=== PATIENT | male | born 1985 | race Caucasian/White ===

== ENCOUNTER 2020-01-31 17:02 | Emergency (ER) | payer OTHER, SELFPAY ==
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
[2020-01-31 17:06] VITALS: BP 149/90; PULSE 94; RESP 18; TEMP 36.6; O2SAT 97
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
[2020-01-31 17:23] LABS: Abs Immature Grans 0.06 10^3/uL (0.0-0.06); Absolute Lymphocyte Count 2.82 10^3/uL (1.2-3.4); Absolute Monocyte Count 1.14 10^3/uL (0.1-0.8); Absolute Neutrophil Count 12.15 10^3/uL (1.2-6.7); Basophils % 0.2; Eosinophils % 0.1; HCT 44.5 % (40.0-50.0); HGB 15.5 g/dL (13.5-17.5); Immature Grans % 0.4; Lymphocytes % 17.4; MCH 34.1 pg (27.0-33.0); MCHC 34.8 % (32.0-36.0); MCV 97.8 fL (80-95); MPV 9.4 fL (8.0-11.0); Neutrophils % 74.9; Nucleated RBC 0 %; Platelet Count 329 10^3/uL (130-400); RBC 4.55 10^6/uL (4.36-5.78); RDW 12.7 % (11.8-14.1); RDW-SD 45.4 fL; WBC 16.22 10^3/uL (4.4-10.8)
[2020-01-31 17:24] LABS: Absolute Basophil Count 0.03 10^3/uL (0.0-0.2); Absolute Eosinophil Count 0.02 10^3/uL (0.0-0.7)
[2020-01-31] MEDS: Omnipaque 350 MG/ML 100 ML BTL IJ (17:26)
[2020-01-31] MEDS: Normal Saline Flush 10 ML SYR IVP (17:27)
[2020-01-31] MEDS: Normal Saline - Diluent 50 ML VIAL IV (17:29)
[2020-01-31 17:36] LABS: ALT 77 U/L (16-63); AST 90 U/L (15-37); Albumin 4.7 g/dL (3.4-5.0); Alkaline Phosphatase 91 U/L (46-116); Anion Gap 12.9 mmol/L (3-11); BUN 10 mg/dL (7-18); CO2 22.1 mmol/L (21.0-32.0); CREATININE 0.87 mg/dL (0.70-1.30); Calcium 9.2 mg/dL (8.5-10.1); Chloride 97 mmol/L (98-107); Glucose 99 mg/dL (74-106); Lipase 66 U/L (73-393); Sodium 132 mmol/L (136-145); Total Protein 8.7 g/dL (6.4-8.2)
[2020-01-31 17:48] LABS: Bilirubin Negative (Negative); Blood Trace-lysed (Negative); Clarity Clear (Clear); Glucose Negative (Negative); Ketones Negative (Negative); Leukocyte Esterase Negative (Negative); Nitrite Negative (Negative); Specific Gravity <= 1.005 (1.005-1.025); Urobilinogen 0.2 EU/dL (Up TO 0.2)
[2020-01-31 17:56] LABS: Bacteria Negative HPF (Negative); C & S Indicated? No; Casts Negative LPF (Negative); Crystals Negative HPF (Negative); Epithelial Cells Rare HPF (Negative); Mucus Negative (Negative); RBC 0-2 HPF (0-2); WBC 0-2 HPF (0-5)
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
[2020-01-31] MEDS: Lidocaine 5% Patch 1 PATCH TP (19:18)
[2020-01-31] MEDS: diazePAM 5 MG TAB 10 MG PO (19:19)
[2020-01-31 19:23] VITALS: BP 136/97; PULSE 85; RESP 16; O2SAT 96
== END 2020-01-31 19:35 | disposition home or self-care (01) ==
PROVIDERS: Emergency Provider Student in an Organized Health Care Education/Training Program; PCP Nurse Practitioner Family
DX: S42.102A Fracture of unspecified part of scapula, left shoulder, initial encounter for closed fracture (principal); S22.42XA Multiple fractures of ribs, left side, initial encounter for closed fracture; V47.5XXA Car driver injured in collision with fixed or stationary object in traffic accident, initial encounter
CPT/HCPCS: 74177; 80053; 83690; 99285; 71260; 81003; 81015; 85025; 99284; J3490

== ENCOUNTER 2020-02-12 11:52 | Outpatient (CLI) | payer OTHER, SELFPAY ==
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
== END 2020-02-12 12:12 ==
PROVIDERS: PCP Nurse Practitioner Family; Referring Provider Nurse Practitioner Family; Visit Provider Physician Assistant
DX: M25.512 Pain in left shoulder (principal)
CPT/HCPCS: 73030

== ENCOUNTER 2021-03-15 14:10 | Emergency (ER) | payer OTHER, SELFPAY ==
[2021-03-15 14:16] VITALS: BP 175/90; PULSE 94; RESP 18; TEMP 36.7; O2SAT 98
--- NOTE | 2021-03-15 15:31 | W.ED.GENAD ---
Discharge Plan Disposition Patient Disposition: HOME Condition: Stable Discharge Details Clinical Impression: Anxiety and depression Primary Care Provider: Queenie Montalvo ED Provider: Junior Huerta Home Meds and New Rx's Prescriptions: Discontinued citalopram [Celexa] 20 mg Tablet 20 mg PO DAILY RF: 0 lidocaine [Lidoderm] 1 PATCH patch 1 patch Topical Q24H Qty: 4 RF: 0 Discharge Instructions Instructions: Anxiety (ED), Depression (ED) Additional Instructions: At this time you have been offered a medical screening examination and then evaluated by our mental health team. Please follow their safety plan. They would like you to reach out into a safety call tomorrow during business hours between 9 AM and 5 PM. They will help you set up outpatient resources and then eventually discussed medications once your assessment is complete. Please watch for new or worsening symptoms and return to the ER for any concerns. Medical Decision Making This is a 35-year-old gentleman with a past medical history of anxiety and depression presenting to the ER requesting a psychiatric evaluation. He discontinued his Celexa on his own nearly 6 months ago and has not seen his therapist since then either. His sister brought up that he could be bipolar and he is concerned that he might be, would like a psychiatric evaluation and wonders if he needs to be started on medications. He tells me he does not feel like he requires any hospitalization at this time. He has no acute medical concerns or complaints. I have requested a mental health evaluation. I do not believe that he requiresa CPSO. Mental health evaluation completed, please see their note. Patient is able to be safety plan home. They will do 24-hour check and call and we will set him up with outpatient resources. Patient is very comfortable with this plan and has no additional questions or concerns. Strict discharge and return precautions were provided. I did request that our mental health team reach out to his father and sister to discuss the plan and be sure that they are also comfortable as they seem to be his best outpatient resources at the moment This documentation was generated using [employer] system, please disregard any oddities of phrase or misspellings. Medical Records Medical records reviewed: Yes I reviewed the patient's medical records. HPI General Mode of arrival: ambulatory. Date/Time Provider Initiated Documentation: 03/15/21 14:13. Limitations to Documentation: no limitations. Information obtained by: patient and family (Sister Martha and his father). HPI Narrative: This is a 35-year-old male, reports past medical history of anxiety and depression, presenting to the ER requesting a psychiatric evaluation. Patient states that he has a long history of mental illness, took himself off of his Celexa 4 or 5 months ago, and has not seen his therapist in approximately the same time. Patient states that he has increased anxiety and had a mild panic attack this morning. Patient also reports he drinks a few beers a day but is not seeking detox and has never gone through formal detox. He reports frequent marijuana use but denies smoking cigarettes or any other drug. Patient states that he was feeling suicidal 5 or 6 months ago and did have an attempt but does not feel suicidal or homicidal now. Patient that he feels safe. Patient was prompted to come to the ER today because his sister drove [place] from [place] [employer] area and talked with him about her concern that he could have bipolar that has been undiagnosed. He denies recent illness or trauma. Reports that he has had his 2 vaccines against COVID. He has no acute medical concerns or complaints. Patient was told that he came to the ER he would be able to obtain a psychiatric work-up and referral faster than if he contacted them on his own. Related Data Allergies Allergy/AdvReac Type Severity Reaction Status Date / Time No Known Allergies Allergy Unverified 02/12/20 11:11 General Stated Complaint: PsychEval HERMILA: 3 Review of Systems Constitutional Constitutional: Denies fatigue, Denies fever(s) and Denies headache(s) ENT Ears, Nose, Mouth, and Throat: Denies headache(s) and Denies neck pain Cardiovascular Cardiovascular: Denies chest pain and Denies dyspnea Respiratory Respiratory: Denies cough and Denies dyspnea Gastrointestinal Gastrointestinal: Denies abdominal pain, Denies nausea and Denies vomiting Musculoskeletal Musculoskeletal: Denies back pain and Denies neck pain Integumentary/Breasts Skin/Breast: Denies rash Neurologic Neurologic: Denies headache(s) Psychiatric Psychiatric: Reports anxiety, Reports depression, Reports mood swings, Denies homicidal ideation and Denies suicidal ideation Endocrine Endocrine: Denies fatigue PFSH All Active Problems (Updated 03/15/21 @ 15:57 by LUCIUS Felix) Anxiety and depression (Chronic) Social History Smoking/Tobacco Use Status: Current-Occasional Tobacco Type: cigarettes Smoking risk assessment performed?: Yes Alcohol Intake: current Alcohol Intake frequency: a few times a week Drug use: Occasionally Substance use type: marijuana Current gender identity: male Do you feel safe at home: Yes Do you feel safe in your relationship?: Yes Exam Const General: cooperative, healthy appearing, comfortable and no acute distress Orientation: alert, awake and oriented x3 HENMT Head: normal to inspection, normocephalic and atraumatic Mouth: moist mucous membranes Eyes General: appearance normal, both eyes and all related structures Conjunctivae: conjunctivae normal Neck Neck: normal visual inspection, full ROM, trachea midline, supple and nontender Resp Effort & Inspection: normal respiratory effort and able to speak in complete sentences Auscultation: clear to auscultation bilaterally Cardio Rate: regular rate Rhythm: regular rhythm GI Palpation: soft and nontender Back/Spine/Pelvis Back: No back tenderness Skin General skin exam: no rashes or lesions noted Neuro General: patient alert, patient awake, patient oriented x3, moves all extremities and no focal motor deficits Cognition: normal cognition Speech: speech normal Gait: normal gait Sensory Exam: no sensory deficits noted Extrem General: normal to inspection and full ROM Psych Appearance: grossly normal Mental Status: mental status grossly normal Speech and Movement: speech and movement normal Mood: dysthymic mood Affect: sad Attitude: cooperative Thought Process: normal Thought Content: normal and suicidality Insight: fair Judgment: fair Course Vital Signs Vital signs: Vital Signs Temperature 36.7 C 03/15/21 14:16 Pulse 94 H 03/15/21 14:16 Respiratory Rate 18 03/15/21 14:16 Blood Pressure 175/90 H 03/15/21 14:16 Pulse Oximetry 98 03/15/21 14:16 Temperature 36.7 C 03/15/21 14:16 Pulse 94 H 03/15/21 14:16 Respiratory Rate 18 03/15/21 14:16 Respiratory Effort 03/15/21 14:21 Blood Pressure 175/90 H 03/15/21 14:16 Blood Pressure Position Supine 03/15/21 14:16 Pulse Oximetry 98 03/15/21 14:16 Oxygen Delivery Method Room Air 03/15/21 14:16 Oxygen Flow Rate 0 03/15/21 14:16 Pain Level 0 03/15/21 14:16 PAWSS Have you Been Recently Intoxicated or Drunk Within the Last 30 days?: Yes Have you Ever Experienced Previous Episodes of Alcohol Withdrawal?: No Have you ever Experienced Withdrawal Seizures?: No Have you ever Experienced Delirium Tremens(DT)s?: No Have you ever undergone Alcohol Rehabilitation Treatment (i.e, inpt ot outpatient treatment programs)?: No Have you ever Experienced Blackouts?: No Have you ever Combined Alcohol with other Downers within the last 90 days?: No Have you ever Combined Alcohol with any other Substance of Abuse during the last 90 days?: No Positive Blood Alcohol level on Presentation? [PCS.BAL]: No Evidence of Increased Autonomic Activity (i.e. HR>120, tremor, sweating, agitation, nausea)?: No Result: 1
--- NOTE | 2021-03-15 16:30 | PDOC.MHCN_ITS ---
Date of service: 03/15/21 Time of Service: 16:30 Mental Health Crisis Note Presenting Issue How did you arrive at the ED and why did you come: Pt arrived via family after family was informed of a past suicide attempt as well as, due to the Pt's recent sudden outbursts of anger, and extreme high's and lows pertaining to symptoms of depression and anxiety. Precipitating Factors Pt denied current SI and HI but did admit to having some approximately 5-6 months ago along with an aborted attempt to hang himself. He is not showing any signs of delusions. Disposition BEHAVIOR: Pt is cooperative and engaged. He is precise in his report of events that lead him to the ED today. Pt shows good insight and judgment. Pt is fully oriented. EYE CONTACT: Pt makes good eye contact. MOOD: Pt described his mood as depressed and possibly some anxiety. AFFECT: Pt's affect is within normal range. APPETITE: Pt reported a decrease in appetite. SLEEP(trouble falling/staying asleep: Pt reported not good sleep. Plan Pt is seeking a referral for counseling and psychiatry. He will need to get his records sent form his PCP office [facility]. He was encouraged to do daily phone check in's with [facility] until Monday. He knows he can outreach to [facility] or the National Suicide Lifeline 29/08 should he need additional supports and numbers were given. Collateral contact was done with his sister and father who waited for him in the parking lot. Signature Clinician's Name/Title: Amrita Goodwin MS, [facility] Emergency [facility] Clinician, [facility]
== END 2021-03-15 16:29 | disposition home or self-care (01) ==
PROVIDERS: Emergency Provider Physician Assistant; PCP Nurse Practitioner Family
DX: F41.9 Anxiety disorder, unspecified (principal); F32.A Depression, unspecified
CPT/HCPCS: 99283